=== PATIENT | male | born 1990 | race Caucasian/White ===

== ENCOUNTER 2018-02-10 08:42 | Emergency (ER) | payer OTHER ==
--- NOTE | 2018-02-10 10:11 | ED Physician Documentation ---
PD HPI SYNCOPE - Stated complaint Stated Complaint: SYNCOPE - Chief complaint Chief Complaint: Neuro - History obtained from History obtained from: Patient - History of Present Illness Witnessed: Witnessed Timing - onset: How many hours ago (1) Preceding symptoms: Light headed Contributing factors: Exertion - Treatment prior to arrival Treatment prior to arrival: normal saline was administered by medics. 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 He went outside and sat on a bench where he subsequently had a brief loss of consciousness. Paramedics established IV access and administered normal saline while he was in route to the hospital. The patient is currently asymptomatic. He has a history of similar symptoms in the past. The last time was about 2 years ago, also during PRT. He was diagnosed with dehydration at that time. Review of Systems Constitutional: denies: Fever Ears: denies: Tinnitus/ringing Nose: denies: Congestion Throat: denies: Sore throat Cardiac: denies: Chest pain / pressure, Palpitations Respiratory: denies: Dyspnea, Cough GI: denies: Abdominal Pain, Nausea, Vomiting, Diarrhea : denies: Dysuria Skin: denies: Rash Musculoskeletal: denies: Back pain, Extremity pain Neurologic: reports: Syncope. denies: Focal weakness, Numbness, Headache PD PAST MEDICAL HISTORY - Past Medical History Cardiovascular: None Respiratory: None Endocrine/Autoimmune: None PD ED PE NORMAL - Vitals Vital signs reviewed: Yes (Mild diastolic hypertension.) - General General: Alert and oriented X 3, Well developed/nourished - HEENT HEENT: Atraumatic, EOMI, Moist mucous membranes, Pharynx benign - Neck Neck: Supple, no meningeal sign, No adenopathy, No JVD - Cardiac Cardiac: RRR, No murmur - Respiratory Respiratory: No respiratory distress, Clear bilaterally - Abdomen Abdomen: Soft, Non tender - Back Back: No CVA TTP - Derm Derm: No rash - Extremities Extremities: No edema, No calf tenderness / cord - Neuro Neuro: Alert and oriented X 3, No motor deficit, No sensory deficit, Normal speech Results - Vitals Vitals: Oxygen O2 Source Room air - EKG (time done) 11:05 Rate: Rate (enter#) (75) Rhythm: NSR [place]: Normal Intervals: Normal ID QRS: Normal Ischemia: Normal ST segments Computer interpretation: Agree with computer - Labs Labs: Laboratory Tests 02/10/18 02/10/18 09:10 09:10 WBC 5.6 RBC 4.89 Hgb 15.2 Hct 43.7 MCV 89.4 MCH 31.2 H MCHC 34.9 RDW 13.5 Plt Count 193 MPV 9.0 Neut # (Auto) 4.2 Lymph # (Auto) 0.8 L [place] # (Auto) 0.4 Eos # (Auto) 0.1 Baso # (Auto) 0.0 Absolute Nucleated RBC 0.00 Nucleated RBC % 0.0 Sodium 139 Potassium 4.0 Chloride 103 Carbon Dioxide 26 Anion Gap 10.0 BUN 11 Creatinine 1.3 H Estimated GFR (MDRD) 66 L Glucose 153 H Calcium 9.2 PD MEDICAL DECISION MAKING - ED course Complexity details: reviewed results, re-evaluated patient, considered differential, d/w patient, d/w family ED course: The cause for the patient's brief fainting episode is uncertain at this time. It was associated with strenuous physical activity. There is no clinical evidence to suggest cardiac rhythm disturbance, seizure, or dehydration. CBC and chemistry panel are unremarkable, except for a slightly elevated blood sugar of 153. Electrocardiogram is normal. The patient drank fluids orally while in the emergency department. He remained asymptomatic during 2 hours of observation. No further diagnostic workup or intervention as clinically indicated at this time. I discussed with him and his family the results of his workup, outpatient follow-up, as well as potentially worrisome signs or symptoms that should prompt reevaluation in the emergency department. Departure - Departure Disposition: 01 Home, Self Care Clinical Impression: Syncope Qualifiers: Syncope type: unspecified Qualified Code(s): R55 - Syncope and collapse Condition: Stable Instructions: ED Fainting Unkn Cause Follow-Up: RADHA Lara [Provider Group] Comments: Drink plenty of fluids. Follow-up with your primary physician within 1-2 weeks. Call to schedule appointment. Return to the emergency department if you develop increasing or recurrent lightheadedness or otherwise worsening symptoms. Discharge Date/Time: 02/10/18 12:02
[2018-02-10 10:16] LABS: BASOPHILS % (AUTO) 0.8 %; EOSINOPHILS # (AUTO) 0.1 10^3/uL (0.0-0.7); HGB - HEMOGLOBIN 15.2 g/dL (14.0-18.0); LYMPHOCYTES # (AUTO) 0.8 10^3/uL (1.5-3.5); LYMPHOCYTES % (AUTO) 14.4 %; MEAN CORPUSCULAR HEMOGLOBIN 31.2 pg (27.0-31.0); MEAN CORPUSCULAR HGB CONC 34.9 g/dL (32.0-36.0); MEAN CORPUSCULAR VOLUME 89.4 fL (80.0-94.0); MONOCYTES # (AUTO) 0.4 10^3/uL (0.0-1.0); NEUTROPHILS # (AUTO) 4.2 10^3/uL (1.5-6.6); NEUTROPHILS % (AUTO) 75.8 %; PLT - PLATELET COUNT 193 10^3/uL (130-450); RED BLOOD COUNT 4.89 10^6/uL (4.70-6.10); RED CELL DISTRIBUTION WIDTH 13.5 % (12.0-15.0); WHITE BLOOD COUNT 5.6 x10^3/uL (4.8-10.8)
[2018-02-10 10:21] LABS: CALCIUM 9.2 mg/dL (8.5-10.3); CREATININE 1.3 mg/dL (0.6-1.2)
[2018-02-10 12:00] VITALS: BP 151/87
== END 2018-02-10 12:02 | disposition home or self-care (01) ==
LOC: ED 08:42
DX: R55 Syncope and collapse (principal)
CPT/HCPCS: 36415; 80048; 85025; 93005; 99283; 99284

== ENCOUNTER 2018-11-25 07:28 | Outpatient (CLI) | payer OTHER ==
--- NOTE | 2018-11-26 20:35 | MRI Report ---
Reason: PAIN IN RIGHT ELBOW Procedure Date: 11/25/2018 Accession Number: [id number] / [id number] Procedure: MRI - Elbow RT W/O CPT Code: FULL RESULT: EXAM: RIGHT ELBOW MRI WITHOUT CONTRAST EXAM DATE: 11/25/2018 07:51 AM. CLINICAL HISTORY: PAIN IN RIGHT ELBOW. COMPARISON: None. TECHNIQUE: Multiplanar, multisequence T1-weighted and fluid-sensitive sequences of the elbow without contrast. Other: None. FINDINGS: Bones: No fractures or subluxations. No marrow edema. No bone lesions. Articular Cartilage: Unremarkable. Ligaments: The ulnar collateral, lateral ulnar collateral, radial collateral, and annular ligaments are intact. Tendons: The common flexor and extensor tendons are unremarkable. Distal biceps tendon is unremarkable. Distal triceps tendinitis with mild olecranon bursitis. Musculature: No edema or fatty atrophy. Other: The cubital tunnel and ulnar nerve are unremarkable. No effusion. The subcutaneous tissues are unremarkable. IMPRESSION: Distal triceps tendon tendinitis. RADIA
== END 2018-11-25 07:29 | disposition home or self-care (01) ==
LOC: DI 07:28
PROVIDERS: ATTEND Orthopaedic Surgery
DX: M25.521 Pain in right elbow (principal); M77.8 Other enthesopathies, not elsewhere classified

== ENCOUNTER 2019-05-12 13:01 | Emergency (ER) | payer OTHER ==
[2019-05-12] MEDS ORDERED: ONDANSETRON 4 MG/2 ML VIAL IVP STA ×2 (14:50→15:51)
[2019-05-12] MEDS ORDERED: SODIUM CHLORIDE 0.9% 1,000 ML IV ONE (14:50)
--- NOTE | 2019-05-12 14:52 | ED Physician Documentation ---
History of Present Illness - Stated complaint Stated Complaint: NAUSEA/VOMITING - Chief complaint Chief Complaint: General - Additonal information Additional information: This is a 29-year-old male who presents with persistent vomiting and nausea. He developed some symptoms last week of body aches fever chills cough, he was diagnosed with flu B at [facility], and directed of supportive care. His cough and upper respiratory symptoms started feel better but then he developed diarrhea and vomiting, and he has had persistent vomiting for last 48 hours and he has been unable to hold down anything of substance in that time. He denies any abdominal pain and then some mild gastric soreness after vomiting. No dysuria. He feels better today than he did yesterday. Review of Systems Cardiac: denies: Chest pain / pressure GI: reports: Nausea, Vomiting : denies: Dysuria Immunocompromised: denies: Immunocompromised PD PAST MEDICAL HISTORY - Past Medical History Cardiovascular: None Respiratory: None Endocrine/Autoimmune: None - Present Medications Home Medications: Ambulatory Orders Medication Instructions Recorded Confirmed Ondansetron Odt [Zofran] 4 mg TL Q6H PRN #10 tablet 05/12/19 - Allergies Allergies/Adverse Reactions: Allergies Allergy/AdvReac Type Severity Reaction Status Date / Time No Known Drug Allergies Allergy Verified 05/12/19 13:19 PD ED PE NORMAL - Vitals Vital signs reviewed: Yes - General General: Alert and oriented X 3 - HEENT HEENT: Atraumatic, PERRL - Neck Neck: Supple, no meningeal sign - Cardiac Cardiac: RRR - Respiratory Respiratory: No respiratory distress, Clear bilaterally - Abdomen Abdomen: Soft, Non tender, Non distended - Derm Derm: Other (Small 2 cm diameter psoariatic-appearing plaque on the left elbow, also small plaque, eyebrow, patient states is chronic) - Extremities Extremities: No deformity - Neuro Neuro: Alert and oriented X 3 - Psych Psych: Normal mood, Normal affect Results - Vitals Vitals: Oxygen O2 Source Room air - Labs Labs: Laboratory Tests 05/12/19 05/12/19 15:00 15:00 WBC 4.1 L RBC 5.65 Hgb 16.6 Hct 49.6 MCV 87.8 MCH 29.4 MCHC 33.5 RDW 12.9 Plt Count 195 MPV 10.7 Neut # (Auto) 2.6 Lymph # (Auto) 1.1 L [place] # (Auto) 0.3 Eos # (Auto) 0.1 Baso # (Auto) 0.0 Absolute Nucleated RBC 0.00 Nucleated RBC % 0.0 Sodium 141 Potassium 3.9 Chloride 102 Carbon Dioxide 28 Anion Gap 11.0 BUN 10 Creatinine 1.1 Estimated GFR (MDRD) 79 L Glucose 98 Calcium 9.2 Total Bilirubin 1.0 AST 30 ALT 38 Alkaline Phosphatase 45 Total Protein 8.1 Albumin 4.6 Globulin 3.5 Albumin/Globulin Ratio 1.3 Lipase 29 PD MEDICAL DECISION MAKING - ED course ED course: Patient presents is very well-appearing, vital signs are unremarkable, his abdomen is benign. He is positive for flu B, this is the likely cause of his vomiting and nausea. He was given IV fluids and Zofran, as well as Tylenol for his achiness. Labs show a borderline leukopenia at 4.1 which is consistent with viral suppression versus a normal variant for patient, his electrolyte panels are unremarkable, lipase is normal. After the Zofran and fluids patient is feeling better, he is able to tolerate p.o. fluids. He continues to be well- appearing with no new complaints. I prescribed him Zofran, reviewed return precautions and PCP follow-up, patient was discharged home in good condition. Departure - Departure Disposition: 01 Home, Self Care Clinical Impression: Influenza Condition: Good Prescriptions: Ondansetron Odt [Zofran] 4 mg TL Q6H PRN #10 tablet PRN Reason: Nausea / Vomiting Comments: You were seen today for nausea and vomiting. This appears to be related to your influenza. I am prescribing you Zofran for your nausea and vomiting, make sure you are drinking adequate fluids and continue to get plenty of rest. If you are having persistent vomiting despite the Zofran, or other concerning symptoms such as significant abdominal pain, return to the emergency department. Discharge Date/Time: 05/12/19 16:38
[2019-05-12 15:12] LABS: BASOPHILS % (AUTO) 0.2 %; EOSINOPHILS # (AUTO) 0.1 10^3/uL (0.0-0.7); EOSINOPHILS % (AUTO) 2.2 %; HGB - HEMOGLOBIN 16.6 g/dL (14.0-18.0); LYMPHOCYTES # (AUTO) 1.1 10^3/uL (1.5-3.5); LYMPHOCYTES % (AUTO) 26.8 %; MEAN CORPUSCULAR HEMOGLOBIN 29.4 pg (27.0-31.0); MEAN CORPUSCULAR HGB CONC 33.5 g/dL (32.0-36.0); MEAN CORPUSCULAR VOLUME 87.8 fL (80.0-94.0); MEAN PLATELET VOLUME 10.7 fL (7.4-11.4); MONOCYTES # (AUTO) 0.3 10^3/uL (0.0-1.0); MONOCYTES % (AUTO) 7.3 %; NEUTROPHILS # (AUTO) 2.6 10^3/uL (1.5-6.6); NEUTROPHILS % (AUTO) 63.3 %; PLT - PLATELET COUNT 195 10^3/uL (130-450); RED BLOOD COUNT 5.65 10^6/uL (4.70-6.10); RED CELL DISTRIBUTION WIDTH 12.9 % (12.0-15.0); WHITE BLOOD COUNT 4.1 x10^3/uL (4.8-10.8)
[2019-05-12 15:24] LABS: ALBUMIN 4.6 g/dL (3.2-5.5); ALBUMIN/GLOBULIN RATIO 1.3 (1.0-2.2); CALCIUM 9.2 mg/dL (8.5-10.3); CREATININE 1.1 mg/dL (0.6-1.2); TOTAL PROTEIN 8.1 g/dL (6.7-8.2)
[2019-05-12] MEDS ORDERED: ACETAMINOPHEN 325 MG TABLET PO STA (15:42)
[2019-05-12 16:31] VITALS: BP 122/86
== END 2019-05-12 16:38 | disposition home or self-care (01) ==
LOC: ED 13:01
DX: J10.1 Influenza due to other identified influenza virus with other respiratory manifestations (principal)
CPT/HCPCS: 36415; 80053; 83690; 85025; 96361; 96374; 96376; 99283; 99284; A9270

== ENCOUNTER 2019-08-25 01:07 | Emergency (ER) | payer OTHER ==
[2019-08-25 01:18] VITALS: BP 146/86
--- NOTE | 2019-08-25 02:08 | ED Physician Documentation ---
PD HPI BACK PAIN - Stated complaint Stated Complaint: BK PX - Chief complaint Chief Complaint: Back Pain - History obtained from History obtained from: Patient - History of Present Illness Timing - onset: Today (tonight) Timing - details: Abrupt onset, Still present Pain level now: 6 Location: Mid, Other (midline, lower thoracic/upper lumbar region) Quality: Pain, Spasm Associated symptoms: No: Fever, Weakness, Numbness, Incontinent of urine, Unable to urinate, Incontinent of stool Improves with: Rest Worsened by: Movement Similar symptoms before: Has not had sx before Recently seen: Not recently seen - Additional information Additional information: patient was working this evening at [employer] and 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 The pain was severe enough that he had to sit down initially but with rest he recovered enough such that he was able to get back to finishing his work. The pain persists, although not as severe as it was at onset. He was advised by [facility] staff to come to ED for evaluation. Patient denies similar symptoms in the past. Pain is distinctly worse with movement Review of Systems Constitutional: denies: Fever Cardiac: denies: Chest pain / pressure, Pedal edema Respiratory: denies: Dyspnea GI: denies: Abdominal Pain : denies: Incontinent Musculoskeletal: reports: Back pain Neurologic: denies: Generalized weakness, Focal weakness, Numbness PD PAST MEDICAL HISTORY - Past Medical History Past Medical History: No Cardiovascular: None Respiratory: None Endocrine/Autoimmune: None - Past Surgical History Past Surgical History: No - Present Medications Home Medications: Ambulatory Orders Medication Instructions Recorded Confirmed Cyclobenzaprine [Flexeril] 10 mg PO TID PRN #20 tablet 08/25/19 Hydrocodone/Acetaminophen 1 - 2 each PO Q6H PRN #14 tablet 08/25/19 [Hydrocodon-Acetaminophen 5-325] - Allergies Allergies/Adverse Reactions: Allergies Allergy/AdvReac Type Severity Reaction Status Date / Time No Known Drug Allergies Allergy Verified 08/25/19 01:18 - Social History Does the pt smoke?: Yes Smoking Status: Current every day smoker Does the pt drink ETOH?: Yes Does the pt have substance abuse?: No - Immunizations Immunizations are current?: Yes PD ED PE NORMAL - Vitals Vital signs reviewed: Yes - General General: Alert and oriented X 3, No acute distress (NAD at rest, although appears uncomfortable with movement involving mid/lower back (such as sitting up from stretcher, as well as with standing from sitting position)), Well developed/nourished - Respiratory Respiratory: No respiratory distress, Clear bilaterally - Abdomen Abdomen: Soft, Non tender - Back Back: No CVA TTP, No spinal TTP - Derm Derm: Normal color, Warm and dry, No rash Results - Vitals Vitals: Vital Signs - 24 hr 08/25/19 08/25/19 01:13 02:43 Temperature 36.7 C Heart Rate 115 H 95 Respiratory 18 20 Rate Blood Pressure 146/86 H O2 Saturation 97 98 Oxygen O2 Source Room air PD MEDICAL DECISION MAKING - ED course Complexity details: considered differential, d/w patient ED course: atraumatic back pain of sudden onset associated with heavy lifting (pushing). No "red flags" (such as fever, weakness, numbness, incontinence, abnormal skin findings on exam). No indication for emergent testing at this time. He does not have to return to work until Tuesday (5 days from now). I advocated rest, ibuprofen, and provided prescriptions for flexeril and vicodin should ibuprofen not provide adequate relief. Departure - Departure Disposition: 01 Home, Self Care Clinical Impression: Back pain Condition: Good Instructions: ED Neck Back Pain General Follow-Up: Tali Forte MD [Primary Care Provider] - Prescriptions: Cyclobenzaprine [Flexeril] 10 mg PO TID PRN #20 tablet PRN Reason: Spasms Hydrocodone/Acetaminophen [Hydrocodon-Acetaminophen 5-325] 1 - 2 each PO Q6H PRN #14 tablet PRN Reason: pain Discharge Date/Time: 08/25/19 02:43
[2019-08-25] MEDS ORDERED: HYDROcod/ACET 5/325 Prepack 4 PO STA (02:30)
[2019-08-25] MEDS ORDERED: CYCLOBENZAPRINE 10 MG Prepack 2 PO PRN (02:30)
== END 2019-08-25 02:43 | disposition home or self-care (01) ==
LOC: ED 01:07
DX: M54.9 Dorsalgia, unspecified (principal); F17.200 Nicotine dependence, unspecified, uncomplicated
CPT/HCPCS: 99282; 99284

== ENCOUNTER 2019-10-11 00:18 | Emergency (ER) | payer OTHER ==
--- NOTE | 2019-10-11 00:24 | ED Physician Documentation ---
History of Present Illness - Stated complaint Stated Complaint: VOMITING/CHILLS - History obtained from History obtained from: Patient (Patient is a 29-year-old male who presents with a chief complaint of vomiting x2. 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 and was sent over here to get a COVID screening test and a work excuse.He denies fevers or abdominal pain.) Review of Systems Constitutional: reports: Reviewed and negative Eyes: reports: Reviewed and negative Ears: reports: Reviewed and negative Nose: reports: Reviewed and negative Throat: reports: Reviewed and negative Cardiac: reports: Reviewed and negative Respiratory: reports: Reviewed and negative GI: reports: Nausea, Vomiting : reports: Reviewed and negative Skin: reports: Reviewed and negative Musculoskeletal: reports: Reviewed and negative Neurologic: reports: Reviewed and negative Psychiatric: reports: Reviewed and negative Endocrine: reports: Reviewed and negative Immunocompromised: reports: Reviewed and negative PD PAST MEDICAL HISTORY - Past Medical History Cardiovascular: None Respiratory: None Endocrine/Autoimmune: None - Past Surgical History Past Surgical History: No - Present Medications Home Medications: Ambulatory Orders Medication Instructions Recorded Confirmed Ondansetron Odt [Zofran Odt] 4 mg TL Q6H PRN #10 tablet 10/11/19 - Allergies Allergies/Adverse Reactions: Allergies Allergy/AdvReac Type Severity Reaction Status Date / Time No Known Drug Allergies Allergy Verified 10/11/19 00:26 - Social History Does the pt smoke?: Yes Smoking Status: Current every day smoker Does the pt drink ETOH?: Yes Does the pt have substance abuse?: No - Immunizations Immunizations are current?: Yes PD ED PE NORMAL - Vitals Vital signs reviewed: Yes - General General: Alert and oriented X 3, No acute distress, Well developed/nourished - HEENT HEENT: Atraumatic, PERRL, Moist mucous membranes, Pharynx benign - Neck Neck: Supple, no meningeal sign, No adenopathy, No JVD - Cardiac Cardiac: RRR, No murmur, Strong equal pulses - Respiratory Respiratory: No respiratory distress, Clear bilaterally - Abdomen Abdomen: Normal bowel sounds, Soft, Non tender, Non distended, No organomegaly - Back Back: No CVA TTP, No spinal TTP - Derm Derm: Normal color, Warm and dry, No rash - Extremities Extremities: No deformity, No tenderness to palpate, Normal ROM s pain, No edema, No calf tenderness / cord - Neuro Neuro: Alert and oriented X 3, media marketing specialist 2-12 intact, No motor deficit, No sensory deficit, Normal speech - Psych Psych: Normal mood, Normal affect Results - Vitals Vitals: Vital Signs - 24 hr 10/11/19 00:24 Temperature 36.7 C Heart Rate 98 Respiratory 18 Rate Blood Pressure 129/100 H O2 Saturation 97 Oxygen O2 Source Room air PD MEDICAL DECISION MAKING - ED course Complexity details: re-evaluated patient (Patient treated with oral Zofran, he is tolerated p.o. challenge and is requesting to be discharged.), considered differential (Gastritis.), d/w patient, other (COVID-19 screening sent. 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 Discharge Date/Time: 10/11/19 00:58
[2019-10-11 00:26] VITALS: BP 129/100
[2019-10-11] MEDS ORDERED: ONDANSETRON ODT 4 MG TABLET TL STA (00:44)
== END 2019-10-11 00:58 | disposition home or self-care (01) ==
LOC: ED 00:18
DX: R11.2 Nausea with vomiting, unspecified (principal); Z11.59 Encounter for screening for other viral diseases; F17.200 Nicotine dependence, unspecified, uncomplicated
CPT/HCPCS: 87635; 99283; Q0162; 81599

== ENCOUNTER 2019-10-30 01:29 | Emergency (ER) | payer OTHER ==
[2019-10-30 01:39] VITALS: BP 135/89
[2019-10-30] MEDS ORDERED: NEOMYCIN/POLYMYX/DEXAMETH OPHTH DROPS 5 ML LEFTEYE STA (01:45)
[2019-10-30] MEDS ORDERED: AMOX/CLAV 875 MG/125 MG TABLET PO STA (01:45)
[2019-10-30] MEDS ORDERED: DEXAMETHASONE 10 MG/ML VIAL PO STA (01:45)
[2019-10-30] MEDS ORDERED: CHERRY SYRUP 10 ML UDC PO ONE (01:45)
--- NOTE | 2019-10-30 01:48 | ED Physician Documentation ---
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 He notes that in the morning when he awakened the left eye was matted shut he washed the matting off and throughout the day there is been some tearing and redness to the eye. It is a bit irritated. He also noticed some pain in the left maxillary sinus. He denies a cough or fever. Review of Systems Constitutional: denies: Fever, Chills Eyes: reports: Discharge, Irritation. denies: Loss of vision, Decreased vision, Photophobia Ears: denies: Loss of hearing, Ear pain Nose: reports: Rhinorrhea / runny nose, Congestion, Sinus pressure / pain Throat: denies: Sore throat Cardiac: denies: Chest pain / pressure, Palpitations Respiratory: denies: Dyspnea, Cough GI: denies: Nausea, Vomiting : denies: Dysuria PD PAST MEDICAL HISTORY - Past Medical History Past Medical History: No Cardiovascular: None Respiratory: None Endocrine/Autoimmune: None - Past Surgical History Past Surgical History: No - Present Medications Home Medications: Ambulatory Orders Medication Instructions Recorded Confirmed Ondansetron Odt [Zofran Odt] 4 mg TL Q6H PRN #10 tablet 10/11/19 Amox/Clav 875/125 [Augmentin] 1 each PO Q12H #20 tablet 10/30/19 - Allergies Allergies/Adverse Reactions: Allergies Allergy/AdvReac Type Severity Reaction Status Date / Time No Known Drug Allergies Allergy Verified 10/11/19 00:26 - Social History Does the pt smoke?: Yes Smoking Status: Current every day smoker Does the pt drink ETOH?: Yes Does the pt have substance abuse?: No - Immunizations Immunizations are current?: Yes - POLST Patient has POLST: No PD ED PE NORMAL - Vitals Vital signs reviewed: Yes (Hypertensive) - General General: Alert and oriented X 3, No acute distress, Well developed/nourished - HEENT HEENT: Atraumatic, PERRL, EOMI, Other (The left eye is examined there is no significant conjunctival injection or swelling. There is mild erythema to the upper lid and to the medial aspect of the lower lid. There is point tenderness over the left maxillary sinus and there is erythema and distortion of the landmark in the attic on the l) - Neck Neck: Supple, no meningeal sign, No bony TTP - Cardiac Cardiac: RRR, No murmur - Respiratory Respiratory: No respiratory distress, Clear bilaterally - Abdomen Abdomen: Soft, Non tender - Back Back: No CVA TTP, No spinal TTP - Derm Derm: Normal color, Warm and dry, No rash - Extremities Extremities: No deformity, No edema, No calf tenderness / cord - Neuro Neuro: Alert and oriented X 3, network specialist 2-12 intact, No motor deficit, No sensory deficit, Normal speech Eye Opening: Spontaneous Motor: Obeys Commands Verbal: Oriented GCS Score: 15 - Psych Psych: Normal mood, Normal affect Results - Vitals Vitals: Vital Signs - 24 hr 10/30/19 01:37 Temperature 36.8 C Heart Rate 92 Respiratory 18 Rate Blood Pressure 135/89 H O2 Saturation 98 Oxygen O2 Source Room air PD MEDICAL DECISION MAKING - ED course Complexity details: considered differential, d/w patient ED course: 29-year-old male with matting to the left conjunctivo-appears to have left maxillary sinusitis on examination and left otitis. He is administered dexamethasone 10 mg orally and Augmentin 875. We will place him on a course of antibiotic he is also given a drop of Maxitrol ophthalmic. Departure - Departure Disposition: 01 Home, Self Care Clinical Impression: Sinusitis Qualifiers: Sinusitis location: maxillary Chronicity: acute Recurrence: non-recurrent Qualified Code(s): J01.00 - Acute maxillary sinusitis, unspecified Otitis media Qualifiers: Otitis media type: suppurative Chronicity: acute Laterality: left Recurrence: non-recurrent Spontaneous tympanic membrane rupture: without spontaneous rupture Qualified Code(s): H66.002 - Acute suppurative otitis media without spontaneous rupture of ear drum, left ear Condition: Stable Instructions: ED Otitis Media Acute Adult, ED Sinusitis Abx Tx Follow-Up: aTli Forte MD [Primary Care Provider] - Prescriptions: Amox/Clav 875/125 [Augmentin] 1 each PO Q12H #20 tablet Forms: Activity restrictions
== END 2019-10-30 01:58 | disposition home or self-care (01) ==
LOC: ED 01:29
DX: J01.00 Acute maxillary sinusitis, unspecified (principal); H66.002 Acute suppurative otitis media without spontaneous rupture of ear drum, left ear; F17.200 Nicotine dependence, unspecified, uncomplicated
CPT/HCPCS: 99282; 99284; A9270; J3490